=== PATIENT | male | born 1970 | race Caucasian/White ===

== ENCOUNTER → 2018-03-15 11:27 | Outpatient (CLI) | payer OTHER, SELFPAY ==
--- NOTE | 2018-03-15 11:30 | DI.RAD.S_ITS ---
PROCEDURE: XR LUMBAR SPINE MIN 3V INDICATIONS: back and pelvic pain TECHNIQUE: 3 views of the lumbar spine were acquired. COMPARISON: [facility], CR, L-SPINE 2-3 VIEWS, 07/26/2012, 15:11. [facility], CR, L-SPINE MINIMUM 4 VIEWS, 05/29/2008, 13:00. FINDINGS: Bones: 5 nonrib-bearing vertebrae are present. There is normal bony alignment. No vertebral body compression fractures. No suspicious bony lesions. There is a large right lateral osteophytes at L1-L2, which is new since 07/26/2012. Mild degenerative disc disease is present at L1-L2, L2-L3 and L4-L5. Soft tissues: Overlying bowel gas pattern is normal. No suspicious soft tissue calcifications. Cholecystectomy clips are noted. Oblique images: No pars defects. IMPRESSION: 1. Mild degenerative disc disease in lumbar spine. 2. Large right lateral osteophyte at L1-L2. Dictated by: Sally Moseley M.D. on 03/15/2018 at 13:02 Approved by: Sally Moseley M.D. on 03/15/2018 at 13:06
--- NOTE | 2018-03-15 11:30 | DI.RAD.S_ITS ---
PROCEDURE: XR HIP W PEL IF DONE RT 2V INDICATIONS: back and pelvic pain TECHNIQUE: AP pelvis with lateral view(s) of the right hip(s). COMPARISON: None. FINDINGS: Bones: No fractures or dislocations. Pelvic ring appears intact. No suspicious bony lesions. Mild symmetric hip joint degeneration is noted. Soft tissues: The visualized bowel gas pattern is normal. No suspicious soft tissue calcifications. IMPRESSION: Mild symmetric hip joint degeneration. Dictated by: Sally Moseley M.D. on 03/15/2018 at 13:01 Approved by: Sally Moseley M.D. on 03/15/2018 at 13:02
[2018-03-15 13:00] LABS: Prostate Specific Antigen 0.619 ng/mL (0.10-4.00)
== END ==
PROVIDERS: PCP Family Medicine; Visit Provider Family Medicine
DX: M25.559 Pain in unspecified hip (principal); M54.9 Dorsalgia, unspecified; Z12.5 Encounter for screening for malignant neoplasm of prostate
CPT/HCPCS: 36415; 72110; 73502; 84153

== ENCOUNTER → 2018-03-24 08:44 | Outpatient (CLI) | payer OTHER, SELFPAY ==
--- NOTE | 2018-03-24 | DI.MRI.S_ITS ---
PROCEDURE: MR HIP RT WO CON INDICATIONS: PRIMARY OSTEOARTHRITIS OF RIGHT HIP,LUMBAR HERNIAT TECHNIQUE: Noncontrast coronal T1 spin echo and STIR through the bony pelvis. Coronal and axial T2 fast spin echo with fat saturation, sagittal T1 spin echo, and oblique axial T2 fast spin echo with fat saturation through the hip. COMPARISON: [facility], CR, XR HIP W PEL IF DONE RT 2V, 03/15/2018, 11:13. FINDINGS: Image quality: Excellent. Bones and joints: Bone marrow of the pelvic ring and proximal femurs show normal signal throughout. No intraosseous lesions or fractures. No avascular necrosis of the femoral heads. The visualized lower lumbar spine appears normally aligned. Tendons and ligaments: The gluteus medius and minimus tendons appear intact, without associated muscle atrophy. The nearby proximal iliotibial band also appears intact. The iliopsoas tendon appears intact, without adjacent bursal fluid collections or evidence for impingement syndrome. The origin of the hamstring tendon is intact at the ischial tuberosity, as well as the associated sacrotuberous ligament. The straight and reflected heads of the rectus femoris muscle origin appear intact, as well as the conjoint tendon. The ligamentum teres appears intact where visualized. Labrum and cartilage: The acetabular labrum appears intact in the absence of intra-articular contrast. Cartilage surface of the left femoral head appears of minimally reduced thickness but on the right the degree of degenerative change appears moderate. The alpha angle of the femur is within normal limits at less than 55 degrees. Soft tissues: Visualized muscles demonstrate normal bulk and internal signal. Quadratus femoris muscle demonstrates no internal edema to suggest ischiofemoral impingement. The proximal sciatic neurovascular bundle appears normal adjacent to the hamstring tendons. No free pelvic fluid. Bladder wall thickness is normal. Genitourinary structures and bowel loops appear normal where visualized. IMPRESSION: Asymmetric hip joint osteoarthritis, mild on the left and moderate on the right but without associated evidence of joint effusion or intra-articular loose body bilaterally (the study was optimized for right hip visualization). No adjacent bursitis or inflammatory edema is associated. No prior trauma found. Dictated by: Naveed Cardona M.D. on 03/26/2018 at 10:23 Approved by: Naveed Cardona M.D. on 03/26/2018 at 10:26
--- NOTE | 2018-03-24 | DI.MRI.S_ITS ---
PROCEDURE: MR LUMBAR SPINE WO CON INDICATIONS: PRIMARY OSTEOARTHRITIS OF RIGHT HIP,LUMBAR HERNIAT TECHNIQUE: Noncontrast sagittal T1 spin echo and T2 fast echo, sagittal STIR, axial T1 and T2 fast spin echo through the lumbar spine. In cases with scoliosis, additional coronal T2 fast spin echo may be performed. COMPARISON: [facility], CR, XR LUMBAR SPINE MIN 4V, 03/15/2018, 11:13. [facility]ed With [facility], , L-SPINE MINIMUM 4 VIEWS, 05/29/2008, 13:00. [facility]ed With [facility], CR, L-SPINE 2-3 VIEWS, 07/26/2012, 15:11. FINDINGS: Image quality: Excellent. Alignment and Curvature: There is normal bony alignment. Bone Marrow: Marrow is of normal overall signal. No acute vertebral body compression fractures. Spinal Cord: Conus medullaris terminates at the T12-L1 level. Visualized cord demonstrates normal signal and size. Paraspinous Soft Tissues: No paravertebral masses. L1-L2: Moderate loss of disc height and disc desiccation. There is diffuse disc bulge and large anterior and right lateral disc osteophyte complex. The central canal is patent. No foraminal stenosis. L2-L3: Mild loss of disc height and disc desiccation. There is posterior disc bulge. The central canal is patent. No foraminal stenosis. L3-L4: Normal appearance. L4-L5: Iajy-iv-kpowanav loss of disc height and disc desiccation. There is posterior disc bulge and posterior central annular tear. Mild bilateral facet arthropathy. The central canal is patent. No foraminal stenosis. L5-S1: Preserved disc height. Mild posterior disc bulge. Moderate bilateral facet arthropathy. The central canal is patent. No foraminal stenosis. IMPRESSION: 1. Multilevel degenerative disc disease and facet arthropathy as described. 2. Annular tear at L4-L5. 3. No central canal stenosis. 4. No foraminal stenosis. Dictated by: Sally Moseley M.D. on 03/26/2018 at 7:56 Transcribed by: PRINCE on 03/26/2018 at 8:02 Approved by: Sally Moseley M.D. on 03/26/2018 at 10:59
== END ==
PROVIDERS: PCP Family Medicine; Visit Provider Physical Medicine & Rehabilitation
DX: M16.0 Bilateral primary osteoarthritis of hip (principal); M51.26 Other intervertebral disc displacement, lumbar region; M51.36 Other intervertebral disc degeneration, lumbar region; M51.37 Other intervertebral disc degeneration, lumbosacral region; M47.816 Spondylosis without myelopathy or radiculopathy, lumbar region
CPT/HCPCS: 72148; 73721

== ENCOUNTER → 2023-08-04 19:16 | Outpatient (CLI) | payer SELFPAY ==
--- NOTE | 2023-08-04 19:25 | DI.MRI.S_ITS ---
PROCEDURE: MR SHOULDER RT WO CON INDICATIONS: right shoulder pain TECHNIQUE: Noncontrast oblique coronal T2 fast spin echo with fat saturation, oblique sagittal T1 spin echo and T2 fast spin echo with fat saturation, axial T1 spin echo and T2 fast spin echo with fat saturation through the shoulder. COMPARISON: None. FINDINGS: Image quality: Excellent. Rotator cuff: There is high-grade partial-thickness tear of the distal supraspinatus tendon at the humeral attachment. There is moderate subscapularis tendinosis and mild infraspinatus tendinosis. No high-grade subscapularis or infraspinatus tendon tear. Sagittal images demonstrate no rotator cuff muscle atrophy. Bones and bursae: No bone marrow contusions or fractures. Moderate acromioclavicular and glenohumeral joint degeneration. The acromion demonstrates conventional anatomy, without an os acromiale. No pathologic subacromial-subdeltoid or subcoracoid bursal fluid is present. Capsule and soft tissues: There is degenerative fraying of the glenoid labrum. There is mild tendinosis of the long head of the biceps tendon which demonstrates normal location and morphology. The rotator interval appears irregular with fibrosis. The coracohumeral ligament is thickened. IMPRESSION: 1. High-grade partial-thickness tear of the supraspinatus tendon at the humeral attachment. 2. Moderate subscapularis tendinosis and mild infraspinatus tendinosis. 3. Mild tendinosis of the long head of the biceps. 4. Moderate acromioclavicular and glenohumeral arthrosis. 5. Degenerative labral fraying. 6. Irregular rotator interval with fibrosis. There is thickening of coracohumeral ligament. The findings are associated with adhesive capsulitis. Recommend clinical correlation. Dictated by: Sally Moseley M.D. on 08/07/2023 at 7:59 Approved by: Sally Moseley M.D. on 08/07/2023 at 12:22
== END ==
PROVIDERS: PCP Family Medicine; Referring Provider Family Medicine; Visit Provider Family Medicine
DX: M75.111 Incomplete rotator cuff tear or rupture of right shoulder, not specified as traumatic (principal); M19.011 Primary osteoarthritis, right shoulder; M25.511 Pain in right shoulder
CPT/HCPCS: 73221